=== PATIENT | male | born 1945 | race Caucasian/White ===

== ENCOUNTER → 2017-05-20 | Outpatient (CLI) | payer MEDICARE ==
--- NOTE | 2017-05-18 16:14 | XR ---
EXAMINATION TYPE: XR knee complete LT DATE OF EXAM: 05/18/2017 CLINICAL HISTORY: pain TECHNIQUE: Three views of the left knee are obtained. COMPARISON: None. FINDINGS: There is no acute fracture/dislocation. The tri-compartment joint spaces appear within no rmal limits. The overlying soft tissue appears unremarkable. IMPRESSION: There is no acute fracture or dislocation ICD 10 NO FRACTURE, INITIAL EVALUATION
--- NOTE | 2017-05-20 10:21 | XR ---
EXAMINATION TYPE: XR knee complete RT , 3 VIEWS DATE OF EXAM ORDERED: 05/20/2017 HISTORY: PAIN. COMPARISON: None. FINDINGS: There is medial joint space loss. There are remodeling changes in the medial compartment a s well as the patellofemoral joint. There is peaking of intercondylar spines. No fracture or dislocat ion is seen. IMPRESSION: MODERATE OSTEOARTHRITIS.
== END | disposition home or self-care (01) ==
LOC: RADXRMAIN 05-18 14:47
PROVIDERS: ATTEND Family Medicine
DX: M17.11 Unilateral primary osteoarthritis, right knee (principal)

== ENCOUNTER → 2018-03-19 | Outpatient (CLI) | payer MEDICARE ==
--- NOTE | 2018-03-19 14:54 | XR ---
EXAMINATION TYPE: XR lumbar spine 1V DATE OF EXAM: 03/19/2018 CLINICAL HISTORY: pain COMPARISON: NONE TECHNIQUE: Limited single view of the lumbar spine submitted. FINDINGS: There are 5 lumbar type vertebral bodies identified. Vertebral body heights are within no rmal limits. Degenerative disc space narrowing and spondylosis. The overlying soft tissue appears u nremarkable. IMPRESSION: No acute fracture or dislocation is seen in the lumbar spine.ICD 10 NO FRACTURE, INITIAL EVALUATION
== END ==
LOC: RADXRMAIN 14:23
PROVIDERS: ATTEND Physician Assistant
DX: M54.31 Sciatica, right side (principal)
CPT/HCPCS: 72020

== ENCOUNTER → 2018-03-26 | Outpatient (CLI) | payer MEDICARE ==
--- NOTE | 2018-03-27 08:39 | XR ---
EXAMINATION TYPE: XR lumbar spine 2 or 3V DATE OF EXAM: 03/26/2018 CLINICAL HISTORY: pain TECHNIQUE: Three views of the lumbar spine are submitted. COMPARISON: 03/19/2018 FINDINGS: There are 5 lumbar type vertebral bodies identified. The lumbar spine shows satisfactory alignment w ithout evidence of acute fracture or dislocation. Vertebral body heights are within normal limits. Disc spaces are severely narrowed at L5-S1 with severe facet joint arthropathy. The overlying soft t issue appears unremarkable. IMPRESSION: No acute fracture or dislocation is seen in the lumbar spine. ICD 10 NO FRACTURE, INITIAL EVALUATION
--- NOTE | 2018-03-27 09:03 | XR ---
EXAMINATION TYPE: XR cervical spine limited DATE OF EXAM: 03/26/2018 CLINICAL HISTORY: pain TECHNIQUE: 3 views of the cervical spine are submitted. COMPARISON: None. FINDINGS: There is satisfactory in alignment without evidence of acute fracture or dislocation. The pre-vertebral soft tissue appears within normal limits. Moderate multilevel degenerative disc space narrowing and spondylosis. The C1-C2 articulation is unremarkable on the open mouth view. IMPRESSION: No acute fracture or dislocation is seen in the cervical spine.
== END | disposition home or self-care (01) ==
LOC: RADXRMAIN 16:43
PROVIDERS: ATTEND Chiropractor
DX: M54.41 Lumbago with sciatica, right side (principal); M99.01 Segmental and somatic dysfunction of cervical region
CPT/HCPCS: 72040; 72100

== ENCOUNTER → 2023-06-09 | Outpatient (CLI) | payer MEDICARE ==
--- NOTE | 2023-06-09 16:16 | XR ---
EXAMINATION TYPE: XR chest 2V DATE OF EXAM: 06/09/2023 3:29 PM CLINICAL INDICATION:Male, 77 years old with history of R05.3 CHRONIC COUGH; [facility] COMPARISON: Chest radiographs from [id number] TECHNIQUE: XR chest 2V Frontal and lateral views of the chest. FINDINGS: Lungs/Pleura: There is flattening of the diaphragm with increased lucency of the lungs. No evidence o f pneumothorax, pleural effusion or focal consolidation. Pulmonary vascularity: Unremarkable. Heart/mediastinum: Cardiomediastinal silhouette is unremarkable. Musculoskeletal: No acute osseous pathology. IMPRESSION: 1. No acute cardiopulmonary disease process. 2. COPD changes.
== END | disposition home or self-care (01) ==
LOC: RADXRMAIN 15:17
PROVIDERS: ATTEND Family Medicine
DX: J44.9 Chronic obstructive pulmonary disease, unspecified (principal)
CPT/HCPCS: 71046